=== PATIENT | female | born 1980 | race Two or more races ===

== ENCOUNTER 2017-08-29 06:37 | Inpatient (IN) | payer OTHER ==
[2017-08-31] MEDS ORDERED: AMOX-CLAV 875-1 EACH PO (06:02)
[2017-08-31] MEDS ORDERED: CODE1TAB37 PO (06:02)
[2017-08-31] MEDS ORDERED: ESTR0.624 PO (06:02)
[2017-08-31] MEDS ORDERED: MAXFE CAPLET1 EACH PO (06:04)
== END 2017-08-31 09:01 | disposition home or self-care (01) | DRG 742 ==
LOC: CIR.AMB 06:37 → O/R 19:37 → OB/GYN 19:37
PROVIDERS: Obstetrics & Gynecology
PROC: 0UQ90ZZ Repair Uterus, Open Approach (ICD-10-PCS; 2017-08-29)
PROC: 0UJD8ZZ Inspection of Uterus and Cervix, Via Natural or Artificial Opening Endoscopic (ICD-10-PCS; 2017-08-29)
PROC: 0UDB7ZZ Extraction of Endometrium, Via Natural or Artificial Opening (ICD-10-PCS; principal; 2017-08-29 09:30)
DX: N85.6 Intrauterine synechiae (principal); D62 Acute posthemorrhagic anemia; N99.72 Accidental puncture and laceration of a genitourinary system organ or structure during other procedure; I97.620 Postprocedural hemorrhage of a circulatory system organ or structure following other procedure

== ENCOUNTER 2021-01-06 09:53 | Outpatient (CLI) | payer OTHER ==
[~2021-01-06 09:53] MED LIST: AMOX-CLAV 875-1 EACH PO; CODE1TAB37 PO; ESTR0.624 PO; MAXFE CAPLET1 EACH PO
== END 2021-01-06 09:54 | disposition home or self-care (01) ==
LOC: RX STUDY 09:53
PROVIDERS: ATTEND Obstetrics & Gynecology
DX: N73.6 Female pelvic peritoneal adhesions (postinfective) (principal); I10 Essential (primary) hypertension